=== PATIENT | male | born 1960 | race Caucasian/White ===

== ENCOUNTER 2021-09-11 12:02 | Emergency (ER) | payer OTHER, SELFPAY ==
--- NOTE | ~2021-09-11 | CT_ITS ---
EXAMINATION: CT abdomen pelvis wo con DATE: 09/11/2021 13:18 INDICATION: Flank pain. TECHNIQUE: Computed tomography (CT) of the abdomen and pelvis was performed without intravenous contr ast. Automated exposure control and iterative reconstruction technique were employed. The dose-length product was 1533.97 mGy-cm. COMPARISON: None FINDINGS: Mild linear discoid atelectasis in the left lower lobe. Heart size is normal. Atherosclerotic coronar y artery calcification. No pericardial or pleural effusion. Liver, gallbladder, spleen, pancreas and bilateral adrenal glands are normal. Kidneys and ureters are normal with no urolithiasis or hydroneph rosis. Relatively symmetric mild bilateral perinephric stranding. Bowels including the appendix are n ormal. Bladder is normal. No free intraperitoneal gas or fluid. No pathologically enlarged abdominal or pelvic lymphadenopathy. There are bridging osteophytes at multiple levels in the spine, consistent with diffuse idiopathic skeletal hyperostosis (DISH). IMPRESSION: 1. No urolithiasis or acute intra-abdominal/pelvic process. Reviewed, dictated and finalized at location A.
[2021-09-11 12:04] VITALS: BP 161/84; PULSE 115; RESP 18; TEMP 36.4; O2SAT 97
--- NOTE | 2021-09-11 12:33 | ED.BACK ---
HPI - Back Pain/Injury General Chief Complaint: Back Pain/Injury Stated Complaint: low back pain Time Seen by Provider: 09/11/21 12:11 Source: patient Mode of arrival: ambulatory Limitations: no limitations History of Present Illness HPI Narrative: Patient is a 61-year-old male complaining of low back pain, right side, radiating to his right lower extremity, 7 out of 10, dull, worse with movement and walking started approxi-1 week ago. Patient states that he saw his chiropractor this past week regarding his low back pain. Patient denies weakness, numbness or incontinence. Patient denies chest pain, shortness of breath or abdominal pain. Related Data Allergies Allergy/AdvReac Type Severity Reaction Status Date / Time No Known Allergies Allergy Verified 09/11/21 12:13 Review of Systems Review of Systems: All systems reviewed & are unremarkable except as noted in HPI and below Constitutional: Constitutional: Denies body ache(s), Denies chills, Denies excessive sweating, Denies fatigue, Denies fever(s), Denies headache(s), Denies lethargy, Denies malaise, Denies weakness and Denies weight loss Eyes: Eyes: Denies blurry vision, Denies change in vision and Denies loss of vision ENT: Denies dizziness, Denies ear discharge, Denies headache(s), Denies lip swelling, Denies epistaxis, Denies nasal congestion, Denies neck pain, Denies throat swelling and Denies tongue swelling Cardiovascular: Cardiovascular: Denies chest pain, Denies chest pain at rest, Denies chest pain with activity, Denies diaphoresis, Denies rapid heart rate, Denies edema, Denies irregular heart rhythm, Denies lightheadedness, Denies palpitations, Denies dyspnea and Denies dyspnea on exertion Respiratory: Respiratory: Denies chest congestion, Denies cough, Denies hemoptysis, Denies dyspnea and Denies dyspnea on exertion Gastrointestinal: Gastrointestinal: Denies abdominal pain, Denies melena, Denies hematochezia, Denies diarrhea, Denies nausea, Denies vomiting and Denies hematemesis Musculoskeletal: Musculoskeletal: Denies abnormal gait, Denies deformity, Denies joint swelling, Denies limited range of motion, Denies neck pain and Denies numbness Neurologic: Denies Abnormal speech present, Denies abnormal gait, Denies confusion, Denies dizziness, Denies headache(s), Denies focal weakness, Denies loss of vision, Denies numbness, Denies Other visual disturbances, Denies Sensory deficit (Neuro) and Denies weakness Psychiatric: Psychiatric: Denies confusion, Denies depression, Denies auditory hallucinations, Denies homicidal ideation and Denies suicidal ideation Endocrine: Endocrine: Denies cold intolerance, Denies excessive sweating, Denies fatigue, Denies heat intolerance and Denies palpitations Hematologic/Lymphatic: Hematologic/Lymphatic: Denies easy bleeding and Denies easy bruising Allergic/Immunologic: Allergic/Immunologic: Denies lip swelling, Denies throat swelling and Denies tongue swelling PMFSH Family History Family History Sibling Asthma Other Diabetes mellitus Family history of cardiovascular disease Hypertension Social History Social History Smoking status: Never smoker Alcohol intake: current Comments Past medical history: Hypertension, diabetes Exam Const: General: cooperative, healthy appearing, comfortable, no acute distress, well developed, alert and awake; No confusion Orientation/consciousness: oriented to person, oriented to place, oriented to time, patient oriented x3 and No confusion Limitations: no limitations HENMT: Head: normal to inspection, normocephalic and atraumatic Ears: hearing grossly normal bilaterally, TM normal on the right and TM normal on the left General nose exam: Normal external nose present, Normal nares present and No nasal discharge present Face and sinus: normal facial exam Mouth: Yes Normal
[2021-09-11] MEDS: KETOROLAC 30 MG/ML VIAL (*BKC) IM (12:55)
[2021-09-11] MEDS: diazePAM (*CRX) 5 MG TABLET PO (12:56)
[2021-09-11 13:50] VITALS: RESP 16
== END 2021-09-11 13:51 | disposition home or self-care (01) ==
PROVIDERS: Emergency Provider Emergency Medicine; PCP Internal Medicine Endocrinology, Diabetes & Metabolism
DX: M54.16 Radiculopathy, lumbar region (principal)
CPT/HCPCS: 74176; 96372; 99284; A9270; J1100; J1885

== ENCOUNTER 2024-12-11 09:30 | Outpatient (RCR) | payer BC, SELFPAY ==
--- NOTE | 2024-10-31 16:37 | OPREHPOC ---
Outpatient Therapy Plan of Care This is a Multidisciplinary Plan of Care that may contain components documented by all disciplines (PT, OT, and ST.) PT Problem 1 PT Problem #1 Knowledge Deficit PT Goal 1 Goal / Goal Update *independent with HEP for land and aquatic exercises * correct gait pattern with assistive device Target Visit 10 PT Problem 2 PT Problem #2 Pain PT Goal 1 Goal / Goal Update 1* pain rating at worst of 3/10 in back 2* radicular pain to R LE to mid thigh at worst 3* sleeping awaken 2x/night due to pain Target Visit 10 PT Problem 3 PT Problem #3 Impaired Strength PT Goal 1 Goal / Goal Update 1increase strength of R and L LE to gross 4+/5 to improve mobility and transfers 2* sit/stand without use of UE x 5 reps 3* pt able to static stand without UE support x 60 seconds Target Visit 10 PT Problem 4 PT Problem #4 Impaired Functional Mobility PT Goal 1 Goal / Goal Update 1* 5 reps sit/stand without use of UE with full standing in 14 seconds 2* 2 minute walking test distance of 325' with assistive device Target Visit 10
--- NOTE | 2024-10-31 16:37 | PTOPEVAL1 ---
Assessment and note entered by Natalie Christianson, PT Evaluation Information Assessment Status Evaluation ICD-10 Condition Codes (PT) Radiculopathy, thoracolumbar region M54.15, Difficulty Walking R26.2,Abnormalities of gait and mobility R26.9,Weakness R53.1 Other ICD-10 Condition Codes ( lumbar spondylosis M47.816 PT) Onset chronic issues Subjective Information back pain since 2021; chronic back pain, gradually worse; used to use a cane, more pain and went to wheeled walker in 2021; problems with balance and strength of legs new diagnosis of Parkinson's, feels like it has effected his hand writing; completed care PT in September, doing exercises from them. 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 limited driving; live alone; local sister assists with transportation GOAL: get rid of the walker, get legs stronger Reported Pain Level Pain Score 2: Self Report Additional Pain Score Comments pain range of the past week 1-4/10; low back tight : radicular pain into R LE intermittent to posterior knee/ no pain into L LE increase pain: walking/standing tolerance 10 minutes, activity and home tasks decrease pain: sit down, exercises from HH therapy report with sleeping, awaken due to back pain 4x/ night- generally sleep on L side Assessment PT Clinical Summary MARGARET has the diagnosis of lumbar radiculopathy. He reports chronic issues with back pain, currently under the care of pain management and ablation has decreased his pain. Radicular pain into R LE to knee and no L LE pain since ablation. Back index rating of 54% limitation in activity level. Pain limits his sleeping, walking, home and self care tasks. He lives alone in an apartment. And reports fear of falling and loss of balance. Recently has care PT services and doing exercises from them. With the evaluation: decreased R and L LE strength, with L ankle weaker than R; sit/stand with use of 1 UE for 3 reps and 5 reps time of 18 seconds, unable to let go of arm rest and stand up; 2 minute walking test distance with wheeled walker, 250; poor standing position of trunk and hips. Skilled PT services are indicated for modalities to decrease pain; therapeutic exercises on land and in the water to increase LE & trunk strength and mobility skills, with education for HEP and pain management. Plan of Care Interventions Aquatic Therapy,Electrical Stimulation,Gait Training,Hot Pack/Cold Pack,Manual Therapy, Mechanical Traction,Neuro Re-education,Patient/ Caregiver Education,Therapeutic Activities, Therapeutic Exercise,Ultrasound,Other Other Interventions taping PT Services Indicated Yes Treatment Frequency and 1-2x/wk for 10 visits Duration These treatments will address the objective and functional deficits as defined above. The patient will be advanced safely and appropriately in order for the patient to progress towards his/her prior level of function. Additional exercises will be introduced and as well as a comprehensive home exercise program upon discharge, if needed, ?to ensure carryover of functional gains achieved in the clinic. This treatment plan has been reviewed and agreement upon by the patient.
--- NOTE | 2024-12-04 16:08 | PCPTNOTE ---
pt called and canceled today's appt due to having to work.
--- NOTE | 2024-12-11 10:24 | OPREHPOC ---
Outpatient Therapy Plan of Care This is a Multidisciplinary Plan of Care that may contain components documented by all disciplines (PT, OT, and ST.) PT Problem 1 PT Problem #1 Knowledge Deficit PT Goal 1 Goal / Goal Update *independent with HEP for land and aquatic exercises * correct gait pattern with assistive device Target Visit 10 Progress Met PT Problem 2 PT Problem #2 Pain PT Goal 1 Goal / Goal Update 1* pain rating at worst of 3/10 in back 2* radicular pain to R LE to mid thigh at worst 3* sleeping awaken 2x/night due to pain 12/11/24: Limited in all 3 goals this date Target Visit 10 Progress Not Met PT Problem 3 PT Problem #3 Impaired Strength PT Goal 1 Goal / Goal Update 1increase strength of R and L LE to gross 4+/5 to improve mobility and transfers 2* sit/stand without use of UE x 5 reps 3* pt able to static stand without UE support x 60 seconds 12/11/24: Unable to complete all 3 goals at this time Target Visit 10 Progress Partially Met PT Problem 4 PT Problem #4 Impaired Functional Mobility PT Goal 1 Goal / Goal Update 1* 5 reps sit/stand without use of UE with full standing in 14 seconds 2* 2 minute walking test distance of 325' with assistive device 12/11/24: Short of both goals Target Visit 10 Progress Partially Met
--- NOTE | 2024-12-11 10:25 | PTOPPROG ---
Assessment and note entered by Garth Bowman, PT Evaluation Information Assessment Status Progress ICD-10 Condition Codes (PT) Radiculopathy, thoracolumbar region M54.15, Difficulty Walking R26.2,Abnormalities of gait and mobility R26.9,Weakness R53.1 Other ICD-10 Condition Codes ( lumbar spondylosis M47.816 PT) Onset chronic issues Subjective Information Patient reports that overall he feels that he is having to retrain himself in his functional capacity. He feels he has seen better balance and he no longer feels as unsteady as he did before. Also feels he is a bit stronger but it is difficult for him to gauge because he does still feel deconditioned. He is still very dependent on the walker which was his primary goal for therapy. He is dependent on walker 14/12 at this point including in the house. Denies any falls but he is still very scared of them as he lives alone. He does not feel steady enough on basic tasks around the home to care for himself and is very dependent on aids and compensations. Feels he needs to be much more self sufficient. Assessment PT Clinical Summary Patient has seen some improvement in strength, functional capacity, and endurance. Still very dependent on wheeled walker and has difficulty with functional activity that requires repetition such as ambulation and sit to stands. Will continue to benefit from skilled therapy to improve functional ability and capacity to reduce falls and improve overall function. Plan of Care Interventions Aquatic Therapy,Electrical Stimulation,Gait Training,Hot Pack/Cold Pack,Manual Therapy, Mechanical Traction,Neuro Re-education,Patient/ Caregiver Education,Therapeutic Activities, Therapeutic Exercise,Ultrasound,Other Other Interventions taping PT Services Indicated Yes Treatment Frequency and 2x/week for 10 visits Duration These treatments will address the objective and functional deficits as defined above. The patient will be advanced safely and appropriately in order for the patient to progress towards his/her prior level of function. Additional exercises will be introduced and as well as a comprehensive home exercise program upon discharge, if needed, ?to ensure carryover of functional gains achieved in the clinic. This treatment plan has been reviewed and agreement upon by the patient.
--- NOTE | 2024-12-15 15:43 | PCPTNOTE ---
pt called and canceled today's appt [place], due to having to work.
--- NOTE | 2025-01-05 08:41 | OPREHPOC ---
Outpatient Therapy Plan of Care This is a Multidisciplinary Plan of Care that may contain components documented by all disciplines (PT, OT, and ST.) PT Problem 1 PT Problem #1 Knowledge Deficit PT Goal 1 Goal / Goal Update *independent with HEP for land and aquatic exercises * correct gait pattern with assistive device 01-05-25 d/c goals not addressed. pt stopped attending therapy Target Visit 10 Progress Met PT Problem 2 PT Problem #2 Pain PT Goal 1 Goal / Goal Update 1* pain rating at worst of 3/10 in back 2* radicular pain to R LE to mid thigh at worst 3* sleeping awaken 2x/night due to pain 12/11/24: Limited in all 3 goals this date 01-05-25 d/c goals not addressed. pt stopped attending therapy Target Visit 10 Progress Not Met PT Problem 3 PT Problem #3 Impaired Strength PT Goal 1 Goal / Goal Update 1increase strength of R and L LE to gross 4+/5 to improve mobility and transfers 2* sit/stand without use of UE x 5 reps 3* pt able to static stand without UE support x 60 seconds 12/11/24: Unable to complete all 3 goals at this time 01-05-25 d/c goals not addressed. pt stopped attending therapy Target Visit 10 Progress Partially Met PT Problem 4 PT Problem #4 Impaired Functional Mobility PT Goal 1 Goal / Goal Update 1* 5 reps sit/stand without use of UE with full standing in 14 seconds 2* 2 minute walking test distance of 325' with assistive device 12/11/24: Short of both goals 01-05-25 d/c goals not addressed. pt stopped attending therapy Target Visit 10 Progress Partially Met
--- NOTE | 2025-01-05 08:42 | PTOPDC ---
Assessment and note entered by Natalie Christianson,, PT Discharge Report Assessment Status Discharge - Pt Not Present ICD-10 Condition Codes (PT) Radiculopathy, thoracolumbar region M54.15, Difficulty Walking R26.2,Abnormalities of gait and mobility R26.9,Weakness R53.1 Other ICD-10 Condition Codes ( lumbar spondylosis M47.816 PT) Onset chronic issues Subjective Information pt was not seen this date. Assessment PT Clinical Summary MARGARET has received 6 PT sessions, from October 31 to December 11. He called and canceled 2 appointments. Discharge PT due to stopped attending. The goals were not addressed. Plan of Care PT Services Indicated No
== END 2025-01-05 10:26 | disposition home or self-care (01) ==
LOC: ANHPT 09:30
PROVIDERS: PCP Internal Medicine Endocrinology, Diabetes & Metabolism
DX: M51.16 Intervertebral disc disorders with radiculopathy, lumbar region (principal); M47.816 Spondylosis without myelopathy or radiculopathy, lumbar region
CPT/HCPCS: 97110; 97112; 97113; 97161; 97530